=== PATIENT | male | born 1985 | race Caucasian/White ===

== ENCOUNTER 2018-03-02 20:27 | Emergency (ER) | payer MEDICAID ==
[~2018-03-02] VITALS: Ht 185.4 cm; Wt 92.0 kg
[2018-03-02 20:58] VITALS: BP 125/82
== END 2018-03-02 22:12 | disposition home or self-care (01) ==
LOC: ED 22:06
DX: S50.861A Insect bite (nonvenomous) of right forearm, initial encounter (principal); L03.113 Cellulitis of right upper limb; Z88.8 Allergy status to other drugs, medicaments and biological substances; W57.XXXA Bitten or stung by nonvenomous insect and other nonvenomous arthropods, initial encounter; Y93.89 Activity, other specified; Y99.8 Other external cause status; Y92.89 Other specified places as the place of occurrence of the external cause
CPT/HCPCS: 99283

== ENCOUNTER 2018-03-18 15:55 | Emergency (ER) | payer MEDICAID ==
[~2018-03-18] VITALS: Ht 182.9 cm; Wt 88.5 kg
[2018-03-18 15:57] VITALS: BP 137/72
[2018-03-18 16:47] LABS: RAPID INFLUENZA A Negative (Negative); RAPID INFLUENZA B Negative (Negative)
== END 2018-03-18 16:57 | disposition home or self-care (01) ==
LOC: ED 16:37
DX: H61.23 Impacted cerumen, bilateral (principal); F17.200 Nicotine dependence, unspecified, uncomplicated; Z88.1 Allergy status to other antibiotic agents
CPT/HCPCS: 71046; 87400; 99285

== ENCOUNTER 2018-04-15 03:32 | Emergency (ER) | payer MEDICAID ==
[~2018-04-15] VITALS: Ht 182.9 cm; Wt 82.0 kg
[2018-04-15 03:36] VITALS: BP 150/97
== END 2018-04-15 04:28 | disposition home or self-care (01) ==
LOC: ED 03:54
DX: S00.411A Abrasion of right ear, initial encounter (principal); J30.89 Other allergic rhinitis; X58.XXXA Exposure to other specified factors, initial encounter; Y93.89 Activity, other specified; Y92.89 Other specified places as the place of occurrence of the external cause; Y99.8 Other external cause status
CPT/HCPCS: 99283